=== PATIENT | female | born 1990 | race Caucasian/White ===

== ENCOUNTER → 2019-12-01 10:13 | Outpatient (CLI) | payer OTHER, SELFPAY ==
[2019-12-01 09:17] VITALS: BMI 22.1
[2019-12-01 10:56] LABS: Absolute Lymphocyte Count 1.82 X10^3/uL (0.83-4.51); Absolute Neutrophil Count 7.5 X10^3/uL (2.0-7.7); Basophil# 0.06 X10^3/uL; Basophil% 0.6 % (0-1); Eosinophil# 0.06 X10^3/uL; Eosinophils% 0.6 % (0-5); Hematocrit 40.8 % (37-47); Hemoglobin 14.4 g/dL (12.0-15.0); Lymphocyte # 1.82 X10^3/ul (4.0); Lymphocyte % 18.4 % (19-41); Mean Corp Hgb Conc 35.3 g/dL (32-36); Mean Corpuscular Hgb 30.3 pg (27.0-32.0); Mean Corpuscular Volume 85.9 fL (81-99); Mean Platelet Vol. 9.6 fl (6.2-12.0); NRBC Flagged by Analyzer 0 % (0-5); Neutrophil # 7.46 X10^3/uL (2.7-7.7); Neutrophil % 75.6 % (47-70); Platelet Count 202 K/mm3 (150-450); RBC Distribution Width CV 11.9 % (11.6-14.6); RBC Distribution Width SD 37.2 fl (35.1-43.9); Red Blood Count 4.75 M/mm3 (4.2-5.4); White Blood Count 9.9 K/mm3 (4.4-11.0)
[2019-12-01 12:40] LABS: HIV - WCH Non-Reactive (Nonreactive); Hepatitis B Surface Antigen Non-Reactive (Nonreactive); Hepatitis C Antibody Non-Reactive (Nonreactive); Rubella IgG > 500.0 IU/mL
[2019-12-01 15:30] LABS: Amphetamine Urine VISTA NEGATIVE (<1000 ng/mL); Barbiturate Urine VISTA NEGATIVE (< 200 ng/mL); Benzodiazepine Urine VISTA NEGATIVE (< 200 ng/mL); Cocaine Urine VISTA NEGATIVE (< 300 ng/mL); Ecstacy Urine VISTA NEGATIVE (< 500 ng/mL); Methadone Urine VISTA NEGATIVE (< 300 ng/mL); PCP Urine VISTA NEGATIVE (< 25 ng/mL); THC Urine VISTA NEGATIVE (< 50 ng/mL); Vista UDS pH Range 5
[2019-12-01 16:37] LABS: Chlamydia Trachomatis by PCR Negative (Negative); Neisserai gonorrhoeae by PCR Negative (Negative)
[2019-12-01 16:38] LABS: Probe Check PASS; Sample Adequacy Control PASS; Specimen Processing Control PASS
[2019-12-04 02:55] LABS: Rapid Plasmin Reagin (RPR) NONREACTIVE (NONREACTIVE)
[2019-12-04 14:11] LABS: HPV Reflexed? NOT INDICATED
== END ==
PROVIDERS: Referring Provider Obstetrics & Gynecology; Visit Provider Obstetrics & Gynecology
DX: Z34.00 Encounter for supervision of normal first pregnancy, unspecified trimester (principal)
CPT/HCPCS: 36415; 80307; 85025; 86592; 86703; 86762; 86803; 86850; 86900; 86901; 87086; 87340; 87491; 87591; 88175; G0145

== ENCOUNTER → 2020-04-22 | Outpatient (CLI) | payer OTHER, SELFPAY ==
[2020-04-22 11:23] VITALS: BMI 22.1
[2020-04-22 12:43] LABS: Absolute Neutrophil Count 11.2 X10^3/uL (2.0-7.7); Basophil# 0.07 X10^3/uL; Basophil% 0.5 % (0-1); Eosinophil# 0.05 X10^3/uL; Eosinophils% 0.4 % (0-5); Hematocrit 38.1 % (37-47); Hemoglobin 13.1 g/dL (12.0-15.0); Lymphocyte % 12.9 % (19-41); Mean Corp Hgb Conc 34.4 g/dL (32-36); Mean Corpuscular Hgb 31.6 pg (27.0-32.0); Mean Platelet Vol. 10.3 fl (6.2-12.0); Monocyte# 0.57 X10^3/uL; Monocyte% 4.1 % (0-10); NRBC Flagged by Analyzer 0 % (0-5); Neutrophil # 11.16 X10^3/uL (2.7-7.7); Platelet Count 171 K/mm3 (150-450); RBC Distribution Width SD 43.2 fl (35.1-43.9); Red Blood Count 4.14 M/mm3 (4.2-5.4); White Blood Count 13.9 K/mm3 (4.4-11.0)
[2020-04-22 12:46] LABS: Glucose Challenge Gest 1H 50g 107 mg/dL (70-140)
== END | disposition home or self-care (01) ==
LOC: LAB 11:49
PROVIDERS: Obstetrics & Gynecology; Referring Provider Nurse Practitioner Women's Health; Visit Provider Nurse Practitioner Women's Health
DX: Z34.92 Encounter for supervision of normal pregnancy, unspecified, second trimester (principal)
CPT/HCPCS: 36415; 82950; 85025; 86850; 86900; 86901

== ENCOUNTER → 2020-06-04 | Outpatient (CLI) | payer OTHER, SELFPAY ==
[2020-06-04 08:08] VITALS: BMI 22.1
== END | disposition home or self-care (01) ==
LOC: LABSPEC 17:20
PROVIDERS: Referring Provider Obstetrics & Gynecology; Visit Provider Obstetrics & Gynecology
DX: Z34.90 Encounter for supervision of normal pregnancy, unspecified, unspecified trimester (principal); Z3A.36 36 weeks gestation of pregnancy
CPT/HCPCS: 87081

== ENCOUNTER → 2020-06-27 09:36 | Outpatient (CLI) | payer OTHER, SELFPAY ==
[2020-06-18 08:48] VITALS: BMI 22.1
[2020-06-25 09:11] VITALS: BMI 22.1
== END ==
PROVIDERS: Referring Provider Obstetrics & Gynecology; Visit Provider Obstetrics & Gynecology
DX: Z11.59 Encounter for screening for other viral diseases (principal)
CPT/HCPCS: 87635; 94799; U0003

== ENCOUNTER → 2020-06-30 | Outpatient (CLI) | payer OTHER, SELFPAY ==
[2020-06-30 08:32] VITALS: BMI 22.1
--- NOTE | 2020-06-30 09:09 | US_ITS ---
STUDY: SECOND AND THIRD TRIMESTER OBSTETRICAL ULTRASOUND - LIMITED REASON FOR EXAM: Female, 29 years old GROWTH LMP: 09/24/2019. PRIOR ULTRASOUND: None. TECHNIQUE: Transabdominal TECHNICAL QUALITY: Adequate. FINDINGS: There is a single intrauterine fetus. The fetus is in a cephalic presentation. There is demonstrated cardiac activity with a heart rate of 1:30 bpm. There is a normal amniotic fluid volume. The largest amniotic fluid pocket measures 4.6 cm. The amniotic fluid index (KATEY) is 13.1 cm. The placenta is anterior in location and is not low lying. There are Grade 3 placental changes. The cervix was not measured due to the head positioning. BIOMETRY: BPD: 9.13 cm: 37 weeks, 1 days HC: 32.5 cm: 36 weeks, 6 days AC: 36.55 cm: 40 weeks, 4 days FL: 7.6 cm: 39 weeks, 0 days Age by LMP: 40 weeks, 0 days. GALEN by LMP: 06/30/2020. age by current US: 38 weeks, 3 days. GALEN by current US: 07/11/2020. Estimated weight: 3724 grams, +/- 544 grams, 59 percentile. US/OB Limited With Biometrics IMPRESSION: Single live intrauterine gestation with a mean gestational age of 38 weeks and 3 days. Electronically Signed: Lamont Mathur, at 10:56 EDT , Service support ,
== END | disposition home or self-care (01) ==
LOC: US 09:09
PROVIDERS: Referring Provider Obstetrics & Gynecology; Visit Provider Obstetrics & Gynecology
DX: O48.0 Post-term pregnancy (principal)
CPT/HCPCS: 76816

== ENCOUNTER 2020-07-08 17:15 | Inpatient (IN) | payer OTHER, SELFPAY ==
[2020-06-18 08:48] VITALS: BMI 22.1
[2020-07-07 16:45] VITALS: BMI 22.1
[2020-07-08] VITALS (17 sets, daily range): BP systolic 114–134; BP diastolic 70–85; PULSE 72–96; TEMP 36.9–37.2; O2SAT 98–100; BMI 27.3
[2020-07-08] MEDS: 0.9% Saline Lock 10 ML Syringe IV (17:40)
[2020-07-08 18:06] LABS: Absolute Lymphocyte Count 1.88 X10^3/uL (0.83-4.51); Absolute Neutrophil Count 9.9 X10^3/uL (2.0-7.7); Basophil# 0.03 X10^3/uL; Basophil% 0.2 % (0-1); Eosinophil# 0.05 X10^3/uL; Eosinophils% 0.4 % (0-5); Hematocrit 38.2 % (37-47); Hemoglobin 13.3 g/dL (12.0-15.0); Lymphocyte # 1.88 X10^3/ul (4.0); Lymphocyte % 14.8 % (19-41); Mean Corp Hgb Conc 34.8 g/dL (32-36); Mean Corpuscular Hgb 31.4 pg (27.0-32.0); Mean Corpuscular Volume 90.3 fL (81-99); Mean Platelet Vol. 10.7 fl (6.2-12.0); Monocyte# 0.68 X10^3/uL; Monocyte% 5.4 % (0-10); NRBC Flagged by Analyzer 0 % (0-5); Platelet Count 156 K/mm3 (150-450); RBC Distribution Width CV 13.2 % (11.6-14.6); RBC Distribution Width SD 42.8 fl (35.1-43.9); Red Blood Count 4.23 M/mm3 (4.2-5.4); White Blood Count 12.7 K/mm3 (4.4-11.0)
[2020-07-08] MEDS: miSOPROStol 25 MCG TABLET PO (18:20)
[2020-07-08] MEDS: 0.9% Normal Saline Single 100 ML IV.SOLN. IY (20:43)
[2020-07-08] MEDS: Lactated Ringers 1,000 ML 50 ML IV (21:53)
[2020-07-08] MEDS: Lactated Ringers 500 ML 999 ML IV ×2 (22:03→23:02)
[2020-07-08] MEDS: fentaNYL-bupivacaine (epidural) 100 ML BAG EPIDURAL (23:39)
[2020-07-09] VITALS (29 sets, daily range): BP systolic 97–129; BP diastolic 58–79; PULSE 57–89; RESP 14–18; TEMP 36.2–38.3; O2SAT 88–100
[2020-07-09] MEDS: Ondansetron 4 MG/2 ML Vial IV (02:58)
[2020-07-09] MEDS: Lactated Ringers 500 ML 999 ML IV (03:54)
[2020-07-09] MEDS: Lactated Ringers 1,000 ML 200 ML IV (04:26)
[2020-07-09] MEDS: Acetaminophen 325 MG Tablet PO (04:54)
[2020-07-09] MEDS: Oxytocin 30 units/NS 500 ml 30 UNITS/500 ML IV.SOLN 334 UNITS IV (06:35)
--- NOTE | 2020-07-09 07:03 | HP.PCM_ITS ---
- Problem List (1) History of genital warts Status: Acute (2) PUPPP (pruritic urticarial papules and plaques of ) Status: Acute Comment: supportive care. symptoms resolved. (3) Status: Acute Qualifiers: Comment: declined genetic, carrier, and ntd screening. 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 She will be induced in 1 week if no spontaneous labor. She denies any vaginal bleeding loss of fluid admits good movement and denies any regular contractions. OB Visit GALEN Calculator Estimated Delivery Date Method Current WG Current Estimate 06/30/20 LMP (Certain) 40w 0d Expected Delivery Route/Plan Labor Preferences- declined cb classes labor support person: Quentin pain management options preferred: epidural cut cord/dad catch: maybe : yes PP control planned: NFP, condoms discussed possible routes of delivery and associated risks: discussed possible delivery modalities and possible indications for each including R/B/A of , VAVD, and CS. questions answered. special requests: Specific Issue/Plans flu vaccine: given tdap vaccine: given rhogam: given LARC form signed: yes movement and labor precautions reviewed. Problem list reviewed and updated with the most current plan of care details and appropriate orders placed. Relevant counseling for the gestational age provided. Continue routine care and follow up unless otherwise noted in visit notes/problem list details Initial Weight: 125 lb Date EGA Weight BP Urine Prot Glucose FHR FuHt Pres Dilation Effaced St Visit Note 12/01/19 9w 5d 125 lb (+0 oz) 106/60 01/02/20 14w 2d 130 lb (+5 lb) 122/86 Negative Negative 150 SM- no vb lof good fm no regular ctx 01/28/20 18w 0d 134 lb (+9 lb) 118/82 150 Sm- no vb lof good fm, no regular ctx 03/26/20 26w 2d 143 lb (+18 lb) 118/72 Negative Negative 145 26 Smm- no vb lof good fm no regular ctx 04/22/20 30w 1d 145 lb 6 oz (+20 lb 6 oz) 110/70 Negative Negative 148 29 MH-No VB, LOF. Good FM. 29 wk labs, rhogam and tdap 05/07/20 32w 2d 147 lb (+22 lb) 100/60 Negative Negative 145 33 SM- no vb lof good fm no regular ctx some tension WILD. has some pupps lesions on abdomen using supportive therapy 05/19/20 34w 0d 149 lb 4 oz (+24 lb 4 oz) 118/78 Negative Negative 145 34 Cephalic Sm- no vb lof good fm no regular ctx 06/04/20 36w 2d 150 lb (+25 lb) 106/70 Negative Negative 130 36 Cephalic 1 -2 SM- no vb lof good fm no regular ctx gbs today 06/11/20 37w 2d 150 lb 4 oz (+25 lb 4 oz) 110/78 Negative Negative 150 37 Cephalic 1 sm- NO VB LOF GOOD FM NO REGULAR CTX 06/18/20 38w 2d 151 lb 2 oz (+26 lb 2 oz) 108/62 Negative Negative 140 38 SM- no vb lof good fm no regular ctx 06/25/20 39w 2d 152 lb (+27 lb) 120/80 Negative Negative 140 39 Cephalic GP - no vb/LOF/DFM. No regular contractions. Labor precautions reviewed. GP - no vb/LOF/DFM. No regular contractions. Labor precautions reviewed. Declined SVE. 06/30/20 40w 0d 152 lb (+27 lb) 124/84 Negative Negative 140 36 Cephalic 1 50 -1 SM- no vb lof good fm no reuglar ctx discussed IOL 41 weeks. get growth US now due to lower fundal height ACOG First Trimester First Trimester: Desire for , Alcohol, Tobacco Cessation, Illicit/Recreational Drug/Substance Use, Intimate Partner Violence, Barriers to care, Unstable Housing, Communication Barriers, Environmental/Work Hazards, Anticipated Course of Care, Toxoplasmosis Precations, Use of Any medications, Sexual activity, Exercise, Dental Care, Sauna/Hot tub use, Seat Belt use, Childbirth classes/Hospital facilities, , Travel, Indications for US and Screening for Aneuploidy Second Trimester Second Trimester: Signs and Symptoms of Labor, Selecting a care provider, Reproductive Life Planning, Care Planning, Tobacco Cessation, Depression/Anxiety and Intimate Partner Violence Third Trimester Third Trimester: Pain Management Plans, Labor support person(s), Immediate Larc, Movement Monitoring and Infant Feeding Yes ; discussed Trial of Labor after Counseling or discussed Circumcision preference Diagnostics Diagnostics Diagnostics Blood Type O NEGATIVE 04/22/20 Antibody Screen NEGATIVE 04/22/20 Glucose 1 Hr 50 gm 107 mg/dL (70-140) 04/22/20 Hgb 13.1 g/dL (12.0-15.0) 04/22/20 Hct 38.1 % (37-47) 04/22/20 Details: HIV: Urine Culture: Sequential Screen: NIPT Screen: ROS Const Reports system reviewed and no additional complaints, except as docu Card Reports system reviewed and no additional complaints, except as docu Resp Reports system reviewed and no additional complaints, except as docu GI Reports system reviewed and no additional complaints, except as docu, Reports nausea Reports system reviewed and no additional complaints, except as docu Musc Reports system reviewed and no additional complaints, except as docu Exam Const General: cooperative, healthy appearing, comfortable, anxious HENOK Head: normal to inspection Nose: external nose normal Face and sinus: normal facial exam Neck Neck: normal visual inspection, full ROM, no lymphadenopathy Thyroid: thyroid normal Chest Chest palpation & inspection: normal inspection of the chest Resp Effort & Inspection: normal respiratory effort GI Inspection: normal to inspection Palpation: soft, other (gravid uterus) Other: infant vertex and appropriate size for gestational age Other: Cervical Exam: Extrem General: pedal edema Results POC Urinalysis 2 Dip (Clinic) Office Urine Glucose Negative Last Edit by Rosibel Nicholson on 06/30/20 08:3 6 Office Urine Protein Negative Last Edit by Rosibel Nicholson on 06/30/20 08:3 6 Assessment & Plan Problems 1. PUPPP (pruritic urticarial papules and plaques of ) O26.86 supportive care. symptoms resolved. 2. History of genital warts Z86.19 3. Rh negative status during O26.899; Z67.91 O negative rhogam given at 28 weeks and delivery 4. Z34.90 declined genetic, carrier, and ntd screening. Anatomy US normal 5. Supervision of normal first Z34.00 PRR GALEN 06/30/20 girl Benoit Spouse: Quentin Plan Patient presents IOL, plan management for with Villalpando bulb and Cytotec followed by Pitocin and AROM. Pain management: Plans epidural. GBS negative. Management of any complications: low fundal height will get growth scan now I have reviewed the [facility] and made any clinically relevant updates. Orders Orders: POC Urinalysis 2 Dip (Clinic) Today OB Limited With Biometrics Today O48.0 Coding Level of Care Code OB Routine Diagnoses PUPPP (pruritic urticarial papules and plaques of ) O26.86 History of genital warts Z86.19 Rh negative status during O26.899; Z67.91 Z34.90 Supervision of normal first Z34.00
--- NOTE | 2020-07-09 07:04 | OP.PCM_ITS ---
Problem List (1) History of genital warts Status: Acute (2) PUPPP (pruritic urticarial papules and plaques of ) Status: Acute Comment: supportive care. symptoms resolved. (3) Status: Acute Qualifiers: Comment: declined genetic, carrier, and ntd screening. Anatomy US normal (4) Rh negative status during Status: Acute Qualifiers: Comment: O negative rhogam given at 28 weeks and delivery (5) Supervision of normal first Status: Acute Qualifiers: Comment: PRR GALEN 06/30/20 bryson Laboy Spouse: Quentin Vaginal Delivery Maternal Presentation: Medically Indicated Induction Method of Induction: Villalpando Bulb, Cytotec Medical Reason for Induction: Post term Amniotic Membrane Rupture Type: Artificial Amniotic Fluid Description: Clear Final GALEN: 06/30/20 Gestational age: 41 Weeks and 2 Days Date of Procedure: 07/09/20 Pre-Operative Diagnosis: iol post date Post-Operative Diagnosis: same Surgery/ Procedure Performed: Spontaneous Vaginal Delivery Type of Anesthesia: Epidural Description of Procedure: Patient began pushing and delivered the head in the ROP presentation. The head was delivered atraumatically and a tight nuchal cord x2 was noted. The anterior and posterior shoulders delivered without complication and the nuchal cord was cut after being clamped while it was on the perineum followed by the rest of the delivering and the was placed on the maternal abdomen. Delayed cord clamping was employed for approximately 60 seconds. Cord was clamped and cut and gentle traction was applied to the cord and the placenta delivered spontaneously immediately following it was noted to be intact with three-vessel cord. The perineum and vagina were inspected and noted to have a second-degree perineal laceration that was repaired in the usual fashion with 3-0 Vicryl Rapide. EBL was 200 cc. Patient and tolerated delivery well. Presentation: ROP Cord Vessel Description: 3 Vessels Cord Entanglement: Around neck x 2, tight Estimated Blood Loss: 200 A gender: Female Laceration: Perineal Extension/lac, 2nd degree Medications given after delivery: IV Pitocin Complications: None Multi Select Codes - Urinary/Genital Urinary/Genital CPT Codes: 15229 Vaginal Delivery [facility]
[2020-07-09] MEDS: Naproxen 250 MG Tablet 500 MG PO (08:44)
[2020-07-09] MEDS: 0.9% Saline Lock 10 ML Syringe IV (09:07)
--- NOTE | 2020-07-09 10:16 | DCINST_ITS ---
Discharge Diet: No Restrictions Discharge Activity: Return to Normal Activity, May not drive while taking narcotic pain medications., May Shower May resume sexual activity in: 4-6 weeks Call your doctor if your incision/area has: Continuous Slow Oozing, Sudden Increased Bleeding, Increased Pain/ Swelling, Increased Redness, Foul Smelling Discharge Additional Instructions: If you experience any of the following, contact your healthcare provider. * Bleeding that soaks a pad every hour for 2 hours * Fever 100.4 or higher * Unrelieved incision or abdominal pain * Swelling, redness, discharge or bleeding from your incision or episiotomy site * Your incision begins to separate * Problems urinating (including inability to urinate or burning while urinating). * Visual changes * Severe headache * Flu-like symptoms * Pain or redness in one of both of your breasts * Pain, warmth, tenderness or swelling in your legs, especially the calf area * Frequent nausea and vomiting * Symptoms of depression or anxiety If you experience any of the following, call 911 or go to the nearest Emergency Room. * Chest pain * Problems breathing * Seizure activity * Partial or complete paralysis of a body part, slurred speech, weakness or drooping of the face, or a sudden inability to walk or hold your balance Allergies/Adverse Reactions: Allergies No Known Allergies Allergy (Verified 07/08/20 17:22) Medications to take at Discharge multivitamin no.47-iron fum 27 mg-folate no.1 1 mg-dha 300 mg capsule 1 cap PO DAILY 12/01/19 breast pump See Rx Instructions .ROUTE .MEDSUPPLY #1 ea 02/20/20 Please Follow Up With: Alissa Elizabeth MD - [phone] When: Call to make an appointment with your doctor in 6 weeks. If you had elevated Blood pressure or 4th degree laceration you will need to be seen in 2 weeks. Primary Care Physician: Care Physician,No Primary [Primary Care Provider] - Test Results: Test results from this visit will be discussed in further detail at your follow- up appointment, if applicable.
--- NOTE | 2020-07-09 10:16 | PCM.DCVAG ---
Discharge Diet: No Restrictions Discharge Activity: Return to Normal Activity, May not drive while taking narcotic pain medications., May Shower May resume sexual activity in: 4-6 weeks Call your doctor if your incision/area has: Continuous Slow Oozing, Sudden Increased Bleeding, Increased Pain/ Swelling, Increased Redness, Foul Smelling Discharge Additional Instructions: If you experience any of the following, contact your healthcare provider. Bleeding that soaks a pad every hour for 2 hours Fever 100.4 or higher Unrelieved incision or abdominal pain Swelling, redness, discharge or bleeding from your incision or episiotomy site Your incision begins to separate Problems urinating (including inability to urinate or burning while urinating). Visual changes Severe headache Flu-like symptoms Pain or redness in one of both of your breasts Pain, warmth, tenderness or swelling in your legs, especially the calf area Frequent nausea and vomiting Symptoms of depression or anxiety If you experience any of the following, call 911 or go to the nearest Emergency Room. Chest pain Problems breathing Seizure activity Partial or complete paralysis of a body part, slurred speech, weakness or drooping of the face, or a sudden inability to walk or hold your balance Allergies/Adverse Reactions: Allergies No Known Allergies Allergy (Verified 07/08/20 17:22) Medications to take at Discharge multivitamin no.47-iron fum 27 mg-folate no.1 1 mg-dha 300 mg capsule 1 cap PO DAILY 12/01/19 breast pump See Rx Instructions .ROUTE .MEDSUPPLY #1 ea 02/20/20 Please Follow Up With: Alissa Elizabeth MD - [phone] When: Call to make an appointment with your doctor in 6 weeks. If you had elevated Blood pressure or 4th degree laceration you will need to be seen in 2 weeks. Primary Care Physician: Care Physician,No Primary [Primary Care Provider] - Test Results: Test results from this visit will be discussed in further detail at your follow-up appointment, if applicable.
[2020-07-10] VITALS (7 sets, daily range): BP systolic 103–116; BP diastolic 65–78; PULSE 63–78; RESP 16–18; TEMP 36.1–36.6; O2SAT 99
[2020-07-10] MEDS: Naproxen 250 MG Tablet 500 MG PO (09:40)
[2020-07-10] MEDS: Acetaminophen 500 MG Tablet 1000 MG PO (14:56)
== END 2020-07-10 15:40 | disposition home or self-care (01) | DRG 807 ==
PROVIDERS: Admitting Provider Obstetrics & Gynecology; Referring Provider Obstetrics & Gynecology; Visit Provider Obstetrics & Gynecology
DX: O48.0 Post-term pregnancy (principal); Z37.0 Single live birth; Z3A.41 41 weeks gestation of pregnancy; O69.1XX0 Labor and delivery complicated by cord around neck, with compression, not applicable or unspecified; O70.1 Second degree perineal laceration during delivery
CPT/HCPCS: 59025; 59050; 85025; 86850; 86900; 86901; 99218; J7120; A4216; G0378; J2405

== ENCOUNTER → 2021-07-07 16:54 | Outpatient (CLI) | payer OTHER, SELFPAY ==
[2021-07-07 17:10] LABS: Absolute Lymphocyte Count 1.96 X10^3/uL (0.83-4.51); Absolute Neutrophil Count 8.2 X10^3/uL (2.0-7.7); Basophil# 0.03 X10^3/uL; Basophil% 0.3 % (0-1); Eosinophil# 0.06 X10^3/uL; Eosinophils% 0.6 % (0-5); Hematocrit 37.8 % (37-47); Hemoglobin 13.5 g/dL (12.0-15.0); Lymphocyte # 1.96 X10^3/ul (0.83-4.51); Lymphocyte % 18.3 % (19-41); Mean Corp Hgb Conc 35.7 g/dL (32-36); Mean Corpuscular Hgb 31.5 pg (27.0-32.0); Mean Corpuscular Volume 88.3 fL (81-99); Mean Platelet Vol. 9.7 fl (6.2-12.0); Monocyte# 0.46 X10^3/uL; Monocyte% 4.3 % (0-10); NRBC Flagged by Analyzer 0 % (0-5); Neutrophil # 8.19 X10^3/uL (2.7-7.7); Neutrophil % 76.2 % (47-70); Platelet Count 195 K/mm3 (150-450); RBC Distribution Width CV 12.2 % (11.6-14.6); RBC Distribution Width SD 39.1 fl (35.1-43.9); Red Blood Count 4.28 M/mm3 (4.2-5.4); White Blood Count 10.7 K/mm3 (4.4-11.0)
[2021-07-07 17:43] LABS: Amphetamine Urine VISTA NEGATIVE (<1000 ng/mL); Barbiturate Urine VISTA NEGATIVE (< 200 ng/mL); Benzodiazepine Urine VISTA NEGATIVE (< 200 ng/mL); Cocaine Urine VISTA NEGATIVE (< 300 ng/mL); Ecstacy Urine VISTA NEGATIVE (< 500 ng/mL); Methadone Urine VISTA NEGATIVE (< 300 ng/mL); PCP Urine VISTA NEGATIVE (< 25 ng/mL); THC Urine VISTA NEGATIVE (< 50 ng/mL); Vista UDS pH Range 7
[2021-07-08 10:40] LABS: HIV - WCH Non-Reactive (Nonreactive); Hepatitis B Surface Antigen Non-Reactive (Nonreactive); Hepatitis C Antibody Non-Reactive (Nonreactive); Rubella IgG Reactive (Nonreactive); Syphilis Antibodies Non-reactive
[2021-07-11 05:07] LABS: Chlamydia By Nucleic Acid AMP Negative (Negative)
[2021-07-12 17:06] LABS: Gonococcus By Nucleic Acid AMP Negative (Negative)
== END ==
PROVIDERS: Referring Provider Obstetrics & Gynecology; Visit Provider Obstetrics & Gynecology
DX: Z34.90 Encounter for supervision of normal pregnancy, unspecified, unspecified trimester (principal)
CPT/HCPCS: 80307; 85025; 86703; 86762; 86780; 86803; 86850; 86900; 86901; 87086; 87088; 87340; 87491; 87591

== ENCOUNTER 2021-11-22 14:46 | Outpatient (CLI) | payer BC, SELFPAY ==
[2021-11-22 15:14] LABS: Absolute Lymphocyte Count 1.84 X10^3/uL (0.83-4.51); Absolute Neutrophil Count 9.5 X10^3/uL (2.0-7.7); Basophil# 0.07 X10^3/uL; Basophil% 0.6 % (0-1); Eosinophil# 0.09 X10^3/uL; Eosinophils% 0.7 % (0-5); Hematocrit 35.7 % (37-47); Hemoglobin 12.2 g/dL (12.0-15.0); Lymphocyte # 1.84 X10^3/ul (0.83-4.51); Lymphocyte % 15.3 % (19-41); Mean Corp Hgb Conc 34.2 g/dL (32-36); Mean Corpuscular Hgb 30.6 pg (27.0-32.0); Mean Corpuscular Volume 89.5 fL (81-99); Monocyte# 0.39 X10^3/uL; Monocyte% 3.2 % (0-10); NRBC Flagged by Analyzer 0 % (0-5); Neutrophil # 9.49 X10^3/uL (2.7-7.7); Neutrophil % 78.9 % (47-70); Platelet Count 127 K/mm3 (150-450); RBC Distribution Width CV 13.2 % (11.6-14.6); Red Blood Count 3.99 M/mm3 (4.2-5.4)
[2021-11-22 15:29] LABS: Glucose Challenge Gest 1H 50g 163 mg/dL (70-140)
== END 2021-11-22 23:59 | disposition short-term general hospital (02) ==
LOC: PAVLAB 14:47
PROVIDERS: Referring Provider Obstetrics & Gynecology; Visit Provider Obstetrics & Gynecology
DX: Z34.90 Encounter for supervision of normal pregnancy, unspecified, unspecified trimester (principal)
CPT/HCPCS: 36415; 82950; 85025; 86850; 86900; 86901

== ENCOUNTER 2021-11-29 06:45 | Outpatient (CLI) | payer BC, SELFPAY ==
[2021-11-29 08:03] LABS: Glucose GTT-Gestation. Fasting 75 mg/dL (<105)
[2021-11-29 08:26] LABS: Glucose GTT-Gestational 1 Hr 115 mg/dL (<190)
[2021-11-29 09:35] LABS: Glucose GTT-Gestational 2 Hr 91 mg/dL (<165)
[2021-11-29 11:00] LABS: Glucose GTT-Gestational 3 Hr 85 L (<145)
== END 2021-11-29 23:59 | disposition short-term general hospital (02) ==
LOC: LAB 06:46
PROVIDERS: Nurse Practitioner Women's Health; Referring Provider Obstetrics & Gynecology; Visit Provider Obstetrics & Gynecology
DX: O99.810 Abnormal glucose complicating pregnancy (principal); Z3A.00 Weeks of gestation of pregnancy not specified
CPT/HCPCS: 36415; 82951; 82952

== ENCOUNTER 2021-12-23 15:19 | Outpatient (CLI) | payer BC, SELFPAY ==
[2021-12-23 15:55] LABS: Absolute Lymphocyte Count 1.44 X10^3/uL (0.83-4.51); Absolute Neutrophil Count 8.7 X10^3/uL (2.0-7.7); Basophil# 0.03 X10^3/uL; Basophil% 0.3 % (0-1); Eosinophil# 0.05 X10^3/uL; Eosinophils% 0.5 % (0-5); Hemoglobin 12.5 g/dL (12.0-15.0); Lymphocyte # 1.44 X10^3/ul (0.83-4.51); Lymphocyte % 13.4 % (19-41); Mean Corp Hgb Conc 35.7 g/dL (32-36); Mean Corpuscular Hgb 32.2 pg (27.0-32.0); Mean Corpuscular Volume 90.2 fL (81-99); Mean Platelet Vol. 10.3 fl (6.2-12.0); Monocyte% 3.7 % (0-10); NRBC Flagged by Analyzer 0 % (0-5); Neutrophil # 8.68 X10^3/uL (2.7-7.7); Neutrophil % 80.8 % (47-70); Platelet Count 125 K/mm3 (150-450); RBC Distribution Width CV 13.4 % (11.6-14.6); RBC Distribution Width SD 43.9 fl (35.1-43.9); Red Blood Count 3.88 M/mm3 (4.2-5.4); White Blood Count 10.7 K/mm3 (4.4-11.0)
== END 2021-12-23 23:59 | disposition home or self-care (01) ==
LOC: LAB 15:20
PROVIDERS: Nurse Practitioner Women's Health; Visit Provider Obstetrics & Gynecology
DX: O99.119 Other diseases of the blood and blood-forming organs and certain disorders involving the immune mechanism complicating pregnancy, unspecified trimester (principal); D69.6 Thrombocytopenia, unspecified
CPT/HCPCS: 36415; 85025

== ENCOUNTER 2022-01-20 17:03 | Outpatient (CLI) | payer BC, SELFPAY | END 2022-01-20 23:59 | disposition home or self-care (01) | PROVIDERS: Visit Provider Obstetrics & Gynecology | DX: Z34.83 Encounter for supervision of other normal pregnancy, third trimester (principal); Z3A.34 34 weeks gestation of pregnancy | CPT/HCPCS: 87081 ==

== ENCOUNTER 2022-01-27 16:15 | Outpatient (CLI) | payer BC, SELFPAY ==
[2022-01-27 16:47] VITALS: BP 128/81; PULSE 74
[2022-01-27 17:01] VITALS: BP 116/75; PULSE 84
[2022-01-27 17:17] VITALS: BP 114/76; PULSE 83
[2022-01-27 17:27] LABS: Hematocrit 34.6 % (37-47); Hemoglobin 12.5 g/dL (12.0-15.0); Mean Corp Hgb Conc 36.1 g/dL (32-36); Mean Corpuscular Hgb 32.6 pg (27.0-32.0); Mean Corpuscular Volume 90.3 fL (81-99); Mean Platelet Vol. 10.6 fl (6.2-12.0); Platelet Count 143 K/mm3 (150-450); RBC Distribution Width CV 13.5 % (11.6-14.6); RBC Distribution Width SD 44.3 fl (35.1-43.9); Red Blood Count 3.83 M/mm3 (4.2-5.4); White Blood Count 11.9 K/mm3 (4.4-11.0)
[2022-01-27 17:32] LABS: Protein, Urine (Random) 13.4 mg/dL (<11.9); Protein:Creat Ratio 64 mg/g CRE (0-200)
[2022-01-27 17:33] VITALS: BP 131/71; PULSE 80
[2022-01-27 17:43] LABS: AST(SGOT) 19 U/L (15-37); Alanine Aminotransfer ALT/SGPT 17 U/L (13-56); Creatinine, Serum 0.76 mg/dL (0.55-1.02); EST Glomerular Filtration Rate 96 mL/min (>60); Est Glom Filt Rate - Afr Amer 116 mL/min (>60); Uric Acid 3.8 mg/dL (2.6-6.0)
[2022-01-27 17:46] VITALS: BP 120/77; PULSE 80
[2022-01-27 18:01] VITALS: BP 114/77; PULSE 82
[2022-01-27 18:21] VITALS: BMI 26.4
--- NOTE | 2022-01-28 01:19 | OB.TRI.PN ---
Progress Notes Date of Service: 01/27/22 Progress Note: Patient presents for triage evaluation secondary to elevated blood pressures in the office FHT: 130 Moderate variability reactive no decelerations category I tracing Hendricks: No regular contractions Assessment and plan: Elevated blood pressures in the office no preeclampsia normal blood work and normal blood pressures with serial evaluation on labor and delivery reactive NST, reassuring maternal and status patient discharged to home to follow-up as scheduled. See problem list details for additional plan information. Laboratory Studies: Laboratory Tests 01/27/22 01/27/22 01/27/22 Range/Units 17:15 17:15 17:15 WBC 11.9 H (4.4-11.0) K/mm3 RBC 3.83 L (4.2-5.4) M/mm3 Hgb 12.5 (12.0-15.0) g/dL Hct 34.6 L (37-47) % MCV 90.3 (81-99) fL MCH 32.6 H (27.0-32.0) pg MCHC 36.1 H (32-36) g/dL RDW Std Deviation 44.3 H (35.1-43.9) fl RDW Coeff of Jason 13.5 (11.6-14.6) % Plt Count 143 L (150-450) K/mm3 MPV 10.6 (6.2-12.0) fl Creatinine 0.76 (0.55-1.02) mg/dL Est GFR (MDRD) Af Amer 116 (>60) mL/min Est GFR (MDRD) Non-Af 96 (>60) mL/min Uric Acid 3.8 (2.6-6.0) mg/dL AST 19 (15-37) U/L ALT 17 (13-56) U/L U Random Total Protein 13.4 H (<11.9) mg/dL Urine Creatinine 209.00 (NO RANGE EST.) mg/dL Protein/Creatinin Ratio 64 (0-200) mg/g CRE Charges/Coding Procedures Urinary/Genital 52xxx-59xxx: [id number] non-stress test Interp
== END 2022-01-27 23:59 | disposition home or self-care (01) ==
LOC: WPOUT 16:22 → WP 16:22
PROVIDERS: Visit Provider Obstetrics & Gynecology
DX: O99.891 Other specified diseases and conditions complicating pregnancy (principal); R03.0 Elevated blood-pressure reading, without diagnosis of hypertension; Z3A.00 Weeks of gestation of pregnancy not specified
CPT/HCPCS: 59050; 82565; 82570; 84156; 84450; 84460; 84550; 85027; 99218; G0378

== ENCOUNTER 2022-02-01 08:15 | Inpatient (IN) | payer BC, SELFPAY ==
[2022-02-01] VITALS (33 sets, daily range): BP systolic 102–136; BP diastolic 61–89; PULSE 67–97; RESP 16; TEMP 36.3–36.9; O2SAT 98–100; BMI 26.2
[2022-02-01 08:28] LABS: ROM Internal Control Test YES-OK TO RESULT pt. (Internal QC)
[2022-02-01 08:30] LABS: ROM Patient Test POSITIVE (Negative)
[2022-02-01] MEDS: Lactated Ringers 500 ML 999 ML IV (08:30)
[2022-02-01 08:40] LABS: Absolute Lymphocyte Count 1.91 X10^3/uL (0.83-4.51); Absolute Neutrophil Count 9.7 X10^3/uL (2.0-7.7); Basophil# 0.05 X10^3/uL; Basophil% 0.4 % (0-1); Eosinophil# 0.06 X10^3/uL; Eosinophils% 0.5 % (0-5); Hematocrit 38.5 % (37-47); Hemoglobin 14.1 g/dL (12.0-15.0); Lymphocyte # 1.91 X10^3/ul (0.83-4.51); Lymphocyte % 15.5 % (19-41); Mean Corp Hgb Conc 36.6 g/dL (32-36); Mean Corpuscular Hgb 32.9 pg (27.0-32.0); Mean Corpuscular Volume 89.7 fL (81-99); Mean Platelet Vol. 10.2 fl (6.2-12.0); Monocyte# 0.45 X10^3/uL; Monocyte% 3.6 % (0-10); NRBC Flagged by Analyzer 0 % (0-5); Neutrophil # 9.71 X10^3/uL (2.7-7.7); Neutrophil % 78.8 % (47-70); Platelet Count 144 K/mm3 (150-450); RBC Distribution Width CV 13.4 % (11.6-14.6); RBC Distribution Width SD 43.7 fl (35.1-43.9); Red Blood Count 4.29 M/mm3 (4.2-5.4); White Blood Count 12.3 K/mm3 (4.4-11.0)
[2022-02-01] MEDS: Ondansetron 4 MG/2 ML Vial IV (09:05)
[2022-02-01] MEDS: Lactated Ringers 1,000 ML 50 ML IV (09:06)
[2022-02-01] MEDS: fentaNYL-bupivacaine (epidural) 100 ML BAG EPIDURAL (10:01)
[2022-02-01] MEDS: Oxytocin 30 units/NS 500 ml 30 UNITS/500 ML IV.SOLN 334 UNITS IV (10:55)
--- NOTE | 2022-02-01 12:40 | HP.PCM.OB_ITS ---
HPI - General General Date of Admission: 02/01/22 HPI Narrative CLARA GROVE, is a 31 @ 38 weeks 4 days who presents to labor and delivery with painful contractions. She progressed to 6 cm dilated and asked for an epidural. she was admitted to L&D for active labor management. Maternal Data Information GALEN Calculator Estimated Delivery Date Method Current WG Current Estimate 02/11/22 LMP (Certain) 38w 4d Other Estimates 02/12/22 Ultrasound #1 38w 3d PFSH PFSH Medical History Ganglion and cyst of synovium, tendon and bursa History of genital warts Medical History no medical history Home Medications multivitamin no.47-iron fum 27 mg-folate no.1 1 mg-dha 300 mg capsule 1 cap PO DAILY 12/01/19 [History Last Taken 01/31/22] Flucelvax Quad 2635-8640 60 mcg (15 mcg x 4)/0.5 mL intramuscular susp 60 mcg IM ONCE #0.5 ml NS 09/09/21 [Clinic Last Taken 08/19/21] Allergy/AdvReac Type Severity Reaction Status Date / Time No Known Allergies Allergy Verified 02/01/22 09:34 Family History Father Cancer thyroid cancer Hypertension Social History adopted: No household members: family housing: house number of children: 1 current occupational status: employed current occupation: [employer] pets and animals: Yes history of recent travel: No sexually active: Yes Smoking Status: Never smoker second hand exposure: No alcohol intake: current alcohol intake frequency: a few times a month details: not while substance use type: does not use seatbelt use: always do you feel safe at home: Yes 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 Date Name GA/Weeks Outcome Route Bth Weight Gen Labor Lgth Anesthesia Del Locatn Provider FOB 07/09/20 Radha 41 live - full term 8lbs 1oz Female pushed for 2 hours epidural [facility] Quentin Visit Details Expected Delivery Route/Plan Labor Preferences- CB/BF classes: no labor support person: Quentin labor intervention preferences: [] pain management options preferred: epidural cut cord/dad catch: cord : yes PP control planned: discussed discussed possible routes of delivery and associated risks: [] special requests: [] Plans Covid status: pos in past. pfizer vaccine Flu vaccine: given Tdap vaccine: given Rhogam: given LARC form signed: yes movement and labor precautions reviewed. Problem list reviewed and updated with the most current plan of care details and appropriate orders placed. Relevant counseling for the gestational age provided. Continue routine care and follow up unless otherwise noted in visit notes/problem list details OB Flowsheet Initial Weight: 117 lb Date -?-?-?-?-?-?-?-?-?-?-?-?- EGA Weight BP Urine Prot -?-?-?-?-?-?-?-?-?-?-?-?- Glucose FHR FuHt Pres Dilation -?-?-?-?-?-?-?-?-?-?-?-?- Effaced St Visit Note 07/07/21 -?-?-?-?-?-?-?-?-?-?-?-?- 8w 5d 117 lb (+0 oz) 122/82 -?-?-?-?-?-?-?-?-?-?-?-?- 170 -?-?-?-?-?-?-?-?-?-?-?-?- SM- no vb lof go od fm nor egulr ctx SM- CRL cons with LMP 08/12/21 -?-?-?-?-?-?-?-?-?-?-?-?- 13w 6d 122 lb 2 oz (+5 lb 2 oz) 104/70 Negative -?-?-?-?-?-?-?-?-?-?-?-?- Negative 150 -?--?-?-?-?-?-?-?-?-?-?-?- GP - no cramping or bleeding. Nausea improving. Anatomy scan ordered. 09/09/21 -?-?-?-?-?-?-?-?-?-?-?-?- 17w 6d 124 lb 6 oz (+7 lb 6 oz) 110/60 -?-?-?-?-?-?-?-?-?-?-?-?- 140 -?-?-?-?-?-?-?-?-?-?-?-?- SM- no v lof vessel scrapper mping 10/07/21 -?-?-?-?-?-?-?-?-?-?-?-?- 21w 6d 129 lb (+12 lb) 114/73 Negative -?-?-?-?-?-?-?-?-?-?-?-?- Negative 140 22 -?-?-?-?-?-?-?-?-?-?-?-?- SM- no vb lof go od fm no reular ctx 11/04/21 -?-?-?-?-?-?-?-?-?-?-?-?- 25w 6d 135 lb 6 oz (+18 lb 6 oz) 124/78 Negative -?-?-?-?-?-?-?-?-?-?-?-?- Negative 147 25 -?-?-?-?-?-?-?-?-?-?-?-?- JV- no lof, vagi nal bleeding, or dec fm. plan for rhogam 11/22/21 -?-?-?-?-?-?-?-?-?-?-?-?- 28w 3d 137 lb 4 oz (+20 lb 4 oz) 112/70 Negative -?-?-?-?-?-?-?-?-?-?-?-?- Negative 143 27 -?-?-?-?-?-?-?-?-?-?-?-?- MH-No VB, LOF. G ood FM. Has US 11/24 to recheck placenta. 28 wk labs, tdap, rhogam, larc 12/09/21 -?-?-?-?-?-?-?-?-?-?-?-?- 30w 6d 140 lb 4 oz (+23 lb 4 oz) 120/80 Negative -?-?-?-?-?-?-?-?-?-?-?-?- Negative 140 30 -?-?-?-?-?-?-?-?-?-?-?-?- SM- no vb lof go od fm no regular ctx 12/23/21 -?-?--?-?-?-?-?-?-?-?-?-?- 32w 6d 140 lb (+23 lb) 120/82 Negative -?-?-?-?-?-?-?-?-?-?-?-?- Negative 145 33 -?-?-?-?-?-?-?-?-?-?-?-?- SM- no vb lof go od fm nor egular ctx 01/06/22 -?-?-?-?-?-?-?-?-?-?-?-?- 34w 6d 110/62 Negative -?-?-?-?-?-?-?-?-?-?-?-?- Negative 145 35 -?-?-?-?-?-?-?-?-?-?-?-?- Sm- no vb lof go od fm no regular ctx 01/20/22 -?-?-?-?-?-?-?-?-?-?-?-?- 36w 6d 147 lb 7 oz (+30 lb 7 oz) 132/80 Trace -?-?-?-?-?-?-?-?-?-?-?-?- Negative 135 36 Cephalic 0 .5 -?-?-?-?-?-?-?-?-?-?-?-?- SM- no vb lof go od fm no regular ctx 01/27/22 -?-?-?-?-?-?-?-?-?-?-?-?- 37w 6d 149 lb (+32 lb) 137/87 Negative -?-?-?-?-?-?-?-?-?-?-?-?- Negative 143 37 Cephalic 1 -?-?-?-?-?-?-?-?-?-?-?-?- 60 JV- no l of, vaginal bleeding, or dec fm. pt complains of headaches and feeling very nauseated the last 2 days. 02/01/22 -?-?-?-?-?-?-?-?-?-?-?-?- 38w 4d 148 lb (+31 lb) 133/89 133/89 135/86 110/66 111/61 103/61 105/67 102/65 112/66 109/68 115/78 121/79 116/73 112/72 112/74 115/76 116/75 113/73 110/74 -?-?-?-?-?-?-?-?-?-?-?-?- -?-?-?-?-?-?-?-?-?-?-?-?- ROS Constitutional Constitutional: Denies change in weight, fatigue, fever(s), headache(s), poor appetite or weakness Eyes Eyes: Denies blurry vision, change in vision, seeing flashes or spots in vision ENT HEENT: Denies dizziness, headache(s), loss taste/smell or sore throat Cardiovascular Cardiovascular: Denies chest pain, dizziness, dyspnea, irregular heart rhythm, leg edema, palpitations, rapid heart rate or vomiting Respiratory/Chest Respiratory/Chest: Denies chest tightness, cough, dyspnea or breast pain Gastrointestinal Gastrointestinal: Denies abdominal pain, anorexia, constipation, cramping, diarrhea, hemorrhoids, vomiting or weight changes Genitourinary Genitourinary: Denies dysuria, flank pain, genital lesions, genital pain, urinary frequency or urinary urgency Musculoskeletal Musculoskeletal: Denies back pain, difficulty walking, joint pain, limited range of motion, muscle cramps or numbness Integumentary Integumentary: Denies lesions or unusual bruising Neurologic Neurologic: Denies abnormal movements, abnormal speech, dizziness, numbness, seizure-like activity or syncope Psychiatric Psychiatric: Denies anxiety, behavioral changes, change in appetite, change in libido, cognitive impairment, confusion, depression, difficulty concentrating, hallucinations or suicidal thoughts Endocrine Endocrinology: Denies excessive sweating, polydipsia or polyuria Hematologic/Lymphatic Hematologic/Lymphatic: Denies easy bleeding, easy bruising or lymphadenopathy Allergic/Immunologic Allergic/Immunologic: Denies itchy eyes, lip swelling, seasonal rhinorrhea, rhinitis, throat swelling, tongue swelling, eczemia, wheezing or asthma Vital Signs Vital Signs Vital Signs: 02/01/22 08:14 02/01/22 08:15 02/01/22 08:52 Temperature 97.5 F L Temperature Source Temporal Pulse Rate 78 78 87 Blood Pressure 133/89 H 133/89 H BP Systolic 133 133 BP Diastolic 89 89 Pulse Ox 100 99 02/01/22 08:57 02/01/22 09:02 02/01/22 09:03 Temperature Temperature Source Pulse Rate 80 73 Blood Pressure 135/86 H 110/66 BP Systolic 135 110 BP Diastolic 86 66 Pulse Ox 100 100 02/01/22 09:07 02/01/22 09:12 02/01/22 09:15 Temperature 98.0 F Temperature Source Tympanic Pulse Rate 78 79 Blood Pressure 111/61 103/61 BP Systolic 111 103 BP Diastolic 61 61 Pulse Ox 100 100 99 02/01/22 09:17 02/01/22 09:22 02/01/22 09:27 Temperature Temperature Source Pulse Rate 74 84 77 Blood Pressure 105/67 102/65 112/66 BP Systolic 105 102 112 BP Diastolic 67 65 66 Pulse Ox 100 100 02/01/22 09:32 02/01/22 09:45 02/01/22 09:58 Temperature Temperature Source Pulse Rate 68 Blood Pressure 109/68 BP Systolic 109 BP Diastolic 68 Pulse Ox 100 99 02/01/22 10:05 02/01/22 10:06 02/01/22 10:37 Temperature Temperature Source Pulse Rate 67 96 Blood Pressure 115/78 121/79 H BP Systolic 115 121 BP Diastolic 78 79 Pulse Ox 100 98 02/01/22 10:59 02/01/22 11:14 02/01/22 11:24 Temperature 97.9 F Temperature Source Tympanic Pulse Rate 75 91 97 Blood Pressure 116/73 112/72 BP Systolic 116 112 BP Diastolic 73 72 Pulse Ox 99 02/01/22 11:25 02/01/22 11:28 02/01/22 11:43 Temperature 97.4 F L Temperature Source Tympanic Pulse Rate 90 85 Blood Pressure 112/74 115/76 BP Systolic 112 115 BP Diastolic 74 76 Pulse Ox 99 02/01/22 11:59 02/01/22 12:14 02/01/22 12:29 Temperature 98.2 F Temperature Source Tympanic Pulse Rate 91 84 80 Blood Pressure 116/75 113/73 110/74 BP Systolic 116 113 110 BP Diastolic 75 73 74 Pulse Ox Weight Weight: 148 lb Body Mass Index (BMI) 26.2 Physical Exam Const alert, oriented x3, no apparent distress and healthy appearing General Appearance: cooperative; Negative for anxious HEENT normocephalic Face and Sinus: normal facial exam Eyes EOMs intact bilaterally and no scleral icterus General Eye: normal appearance of both eyes Neck full ROM and supple Lymph Lymphatic: no lymphadenopathy noted Chest Chest: abnormal inspection of the chest Resp normal respiratory effort Effort and Inspection: able to speak in complete sentences Cardio regular rate GI soft to palpation and non-tender Inspection: gravid Palpation: soft; Negative for tender external exam normal Amniotic Fluid: ROM+plus Back/Spine no CVA tenderness Extremity normal to inspection, full ROM and no clubbing, cyanosis or edema General Extremity: Negative for calf tenderness or edema Skin Lesions: no lesions Rashes: no rashes Psych mental status grossly normal Labs Labs Labs: Blood Type O NEGATIVE Antibody Screen NEGATIVE Hct 38.5 % (37-47) Hgb 14.1 g/dL (12.0-15.0) Pap Smear Negative Obstetrics US Syphilis Total Ab Non-reactive Rubella IgG Antibody Reactive (Nonreactive) Hep Bs Antigen Non-Reactive (Nonreactive) Chlamydia DNA (RAKESH) Negative (Negative) Neisseria gonorrhoeae DNA (RAKESH) Negative (Negative) HIV 1&2 Antibody Non-Reactive (Nonreactive) Glucose 1 Hr 50 gm 163 mg/dL (70-140) H Rhogam given: No Assessment & Plan (1) Abnormal glucose affecting : COMMENT: Normal 3 hr GTT (2) Thrombocytopenia affecting : COMMENT: Recheck CBC in 4 weeks (3) Rh negative status during : QUALIFIERS: Trimester: third trimester Qualified Code(s): O26.893 - Other specified related conditions, third trimester; Z67.91 - Unspecified blood type, Rh negative COMMENT: O neg- Rhogam at 28 weeks and PRN rhogam 11/22/21 (4) Supervision of other normal : COMMENT: PRR GALEN: 02/11/22 surprise PC:Radha Spouse: Quentin (5) : QUALIFIERS: Weeks of gestation: 37 weeks Qualified Code(s): Z3A.37 - 37 weeks gestation of COMMENT: declines carrier, genetic, NTD. anatomy reviewed. GBS neg PLAN: Patient presents IAL, plan expectant management for , pitocin/AROM PRN if needed. Pain management: plans epidural. GBS neg. Management of any complications: check plts for h/o gestational thrombocytopenia I have reviewed the [facility] and made any clinically relevant updates.
--- NOTE | 2022-02-01 12:44 | EX.PCM.OBRPT ---
Maternal Data Information GALEN Calculator Estimated Delivery Date Method Current Current Estimate 02/11/22 LMP (Certain) 38w 4d Other Estimates 02/12/22 Ultrasound #1 38w 3d Vaginal Delivery Maternal Presentation Maternal Presentation: Active Labor Operative Information Date of Procedure: 02/01/22 Pre-Operative Diagnosis: @ 38 weeks 5 days, active labor Post-Operative Diagnosis: @ 38 weeks 5 days, active labor Type of Anesthesia: Epidural Estimated Blood Loss: 400cc Findings Description of Procedure: Patient began pushing and delivered the head in the MUNDO presentation. The head was delivered atraumatically. The anterior and posterior shoulders delivered without complication followed by the rest of the infant and the infant was placed on the maternal abdomen. Delayed cord clamping was employed for approximately 60 seconds. Cord was clamped and cut and gentle traction was applied to the cord and the placenta delivered spontaneously immediately following it was noted to be intact with three-vessel cord. The perineum and vagina were inspected and noted to have a 2nd degree perineal laceration that was repaired using a 3-0 vicryl rapide EBL was 400cc. Patient and tolerated delivery well. Amniotic Fluid Description: Clear Placenta Disposition: [facility] Cord Vessel Description: 3 Vessels Cord Entanglement: None A Gender: Male (1 minute): 9 (5 minute): 9 Delayed Cord Clamping: Yes Post Vaginal Delivery Medications Given After Delivery: IV Pitocin Episiotomy Description: None Laceration: 2nd degree Complication Complications: None Multi Select Codes Urinary/Genital Urinary/Genital CPT Codes: 31400 Vaginal Delivery [facility]
--- NOTE | 2022-02-01 12:48 | PCM.DC ---
Discharge Instructions Diet Discharge Diet: No restrictions Activity Discharge Activity: Return to Normal Activity, May Not Drive (while taking narcotic pain medications.) and May Shower May resume sexual activity in: 4-6 weeks Dressing / Incision Call your doctor if your incision/area has: Continuous Slow Oozing, Sudden Increased Bleeding, Increased Pain/ Swelling, Increased Redness and Foul Smelling Discharge Follow Up Care Please Follow Up With: Kaya Bello, When: Call [phone] to make an appointment with your doctor in 6 weeks. If you had elevated blood pressure or 4th degree laceration, you will need to be seen in 2 weeks. Test Results: Test results from this visit will be discussed in further detail at your follow-up appointment, if applicable. Discharge Plan Admission Admit Date/Time: 02/01/22 08:15 Primary Reason for Your Visit: vaginal delivery Attending Provider: Kaya Bello Primary Care Provider: Care Physician,No Primary Discharge Orders/Prescriptions Prescriptions: New docusate sodium [Colace] 100 mg capsule 100 mg PO DAILY 14 Days Qty: 14 RF: 0 ibuprofen 800 mg tablet 800 mg PO Q8H PRN (Reason: pain) 7 Days Qty: 30 RF: 0 Continued PNV-DHA 27 mg iron-1 mg -300 mg capsule 1 cap PO DAILY RF: 0 Discontinued Flucelvax Quad 60 mcg (15 mcg x 4)/0.5 mL suspension 60 mcg IM ONCE Qty: 0.5 RF: 0 Referrals / Follow Up: Care Physician,No Primary [Primary Care Provider] - Disposition Disposition (needs filled in before D/C Order can be placed): Home, Self Care
[2022-02-01] MEDS: Acetaminophen 500 MG Tablet 1000 MG PO ×2 (16:19→22:23)
[2022-02-02] VITALS (11 sets, daily range): BP systolic 113–121; BP diastolic 62–78; PULSE 67–150; RESP 16; TEMP 36.4–36.5; O2SAT 81–100
--- NOTE | 2022-02-02 06:44 | PN.OBGYN_ITS ---
Subjective Subjective Patient doing well without complaints. Tolerating PO. Ambulating and voiding without difficulty. Feeding well. Denies chest pain, shortness of breath, calf pain/swelling, fevers, chills, lightheadedness. Objective Data Objective Data Vital Signs: Vital Signs Temp Pulse Resp BP Pulse Ox 97.7 F L 68 16 113/65 99 02/02/22 05:05 02/02/22 05:20 02/02/22 05:05 02/02/22 05:20 02/02/22 05:19 Oxygen Delivery Method Room Air Weight: 148 lb Body Mass Index (BMI) 26.2 Intake & Output: Intake and Output for Last 24 Hours 01/31/22 02/01/22 02/02/22 23:59 23:59 23:59 Intake Total 1090.83 / 1090.83 Output Total 800 / 800 Balance 290.83 / 290.83 Lab / Micro Data Result Diagrams: 02/01/22 08:30 Labs: Laboratory Results - last 24 hr 02/01/22 08:10: Vag Amniotic Fld Detect POSITIVE H 02/01/22 08:30: WBC 12.3 H, RBC 4.29, Hgb 14.1, Hct 38.5, MCV 89.7, MCH 32.9 H, MCHC 36.6 H, RDW Std Deviation 43.7, RDW Coeff of Jason 13.4, Plt Count 144 L, MPV 10.2, Immature Gran % (Auto) 1.200 H, Neut % (Auto) 78.8 H, Lymph % (Auto) 15.5 L, [place] % (Auto) 3.6, Eos % (Auto) 0.5, Baso % (Auto) 0.4, Absolute Neuts (auto) 9.7 H, Absolute Lymphs (auto) 1.91, Nucleated RBC % 0 02/01/22 08:30: Blood Type O NEGATIVE, Antibody Screen NEGATIVE 02/01/22 13:26: Screen NEGATIVE, Baby's Blood Type A POSITIVE, Baby's TONIA NEGATIVE Micro: Microbiology 02/01/22 08:30 Nasal Secretion SARS-CoV-2 Antigen (Rapid) - Final ROS Constitutional Constitutional: Denies chills, fatigue, fever(s), poor appetite or weakness Eyes Eyes: Denies blurry vision, change in vision, seeing flashes or spots in vision ENT HEENT: Denies dizziness, headache(s), loss taste/smell or sore throat Cardiovascular Cardiovascular: Denies chest pain, dizziness, dyspnea, irregular heart rhythm, palpitations or rapid heart rate Respiratory/Chest Respiratory/Chest: Denies chest tightness, cough, dyspnea or breast pain Gastrointestinal Gastrointestinal: Denies abdominal pain, constipation or vomiting Genitourinary Genitourinary: Denies dysuria or flank pain Musculoskeletal Musculoskeletal: Denies difficulty walking, joint pain, limited range of motion or numbness Neurologic Neurologic: Denies abnormal movements, abnormal speech, dizziness, numbness, seizure-like activity or syncope Psychiatric Psychiatric: Denies anxiety, behavioral changes, change in appetite, confusion, depression or suicidal thoughts Physical Exam Const alert, oriented x3 and no apparent distress General Appearance: cooperative and comfortable Resp normal respiratory effort Cardio regular rate GI normal to inspection, nondistended, normoactive bowel sounds GI Narrative: uterus is firm below umbilicus Palpation: soft Bimanual Exam - Adnexa, Other: Negative for cul-de-sac fullness Back/Spine no CVA tenderness and thoraco-lumbar ROM normal Extremity normal to inspection, no clubbing, cyanosis or edema, no calf tenderness and no pedal edema Psych mental status grossly normal, thought process normal, cooperative, affect normal, speech normal, activity/motor behavior normal, denies homicidal ideation and denies suicidal ideation Assessment & Plan (1) Vaginal delivery: COMMENT: JV - 02/01/2022 Boy (no name yet) (2) Abnormal glucose affecting : COMMENT: Normal 3 hr GTT (3) Thrombocytopenia affecting : COMMENT: Recheck CBC in 4 weeks (4) Rh negative status during : QUALIFIERS: Trimester: third trimester Qualified Code(s): O26.893 - Other specified related conditions, third trimester; Z67.91 - Unspecified blood type, Rh negative COMMENT: O neg- Rhogam at 28 weeks and PRN rhogam 11/22/21 (5) Supervision of other normal : COMMENT: PRR GALEN: 02/11/22 surprise PC:Radha Spouse: Quentin (6) : QUALIFIERS: Weeks of gestation: 37 weeks Qualified Code(s): Z3A.37 - 37 weeks gestation of COMMENT: declines carrier, genetic, NTD. anatomy reviewed. GBS neg PLAN: s/p PPD # 1 1. routine post delivery care 2. breast feeding- support given 3. rh positive 4. rubella immune 5. consider dc to home today after baby is cleared by peds
[2022-02-02] MEDS: Ibuprofen 600 MG Tablet PO (09:13)
--- NOTE | 2022-02-06 16:30 | NURSING ---
follow up call done, denies needs or questions at this time, was very happy with her care! is going better since meeting with Bobbi and bleeding is light.
== END 2022-02-02 16:36 | disposition home or self-care (01) | DRG 807 ==
LOC: WPOUT 08:21 → WP 08:52
PROVIDERS: Admitting Provider Obstetrics & Gynecology; Referring Provider Obstetrics & Gynecology; Visit Provider Obstetrics & Gynecology
DX: O99.12 Other diseases of the blood and blood-forming organs and certain disorders involving the immune mechanism complicating childbirth (principal); Z37.0 Single live birth; D69.6 Thrombocytopenia, unspecified; O70.1 Second degree perineal laceration during delivery; Z3A.38 38 weeks gestation of pregnancy; Z67.91 Unspecified blood type, Rh negative
CPT/HCPCS: 59025; 59050; 84112; 85025; 85461; 86850; 86900; 86901; 87426; 90384; 99218; J7120; G0378; J2405; J2790